=== PATIENT | male | born 1950 | race Caucasian/White ===

== ENCOUNTER 2016-09-09 21:56 | Emergency (ER) | payer MEDICARE ==
[~2016-09-09 21:56] MED LIST: ASA325 MG PO; BYDUREON P2 MG/0.65 SQ; CALCIUM PO; COREG25 MG PO; FOSINOPRIL SODI20 MG PO; GLUCOPHAGE500 MG PO; HUMALOG100 UNIT/1 SQ; HYDROCHLOROTHIA25 MG PO; HYDROCODON-ACE1 EAC4 PO; K-TAB ER20 MEQ PO; LANTUS100 UNITS/ SQ; LASIX DPS40 MG PO; MAGNESIUM OXID400 MG PO; NAPROSYN DPS500 MG PO; NORVASC5 MG PO; OMEPRAZOLE20 M1 PO; PERCOCET 7.5-31 EACH PO; SPIRONOLACTONE25 MG PO; SYMBICORT 16010.2 GM IH; TRIAMCINOLONE A15 GM TP; VENTOLIN IH; VITAMIN D-32000 UNI1 PO; VYTORIN 10-801 EACH PO
--- NOTE | 2016-09-10 13:07 | ER ---
ADMIT: 09/09/2016 RM/LOC: ER [facility] MR#: [id number] [id number] [place], [place] [address] BETTY LEVY [address] [place] [phone] Emergency Room Report SEX: M AGE: 66 : 1950 DATE: 09/09/2016 HISTORY OF PRESENT ILLNESS: Patient is a 66-year-old male, came here with chief complaint of right elbow and left knee pain. The patient states about 45 minutes ago, he slipped while coming down the stairs and he rolled down 8 stairs, no LOC, no head trauma, ambulated after the accident. The patient states he has pain, which is sharp and moderate in the right elbow and left knee and increases with range of motion, but he is able to do range of motion on both joints. The patient denies any drowsiness, nausea, vomiting, and also alcohol or drug use. The patient denies any chest pain, shortness of breath, abdominal pain or any numbness, tingling, or weakness or problem with the speech too. PHYSICAL EXAMINATION: VITAL SIGNS: Normal. The patient is in mild to moderate pain while range of motion of the right elbow and left knee. GENERAL: The patient is sitting in the bed and answering the questions calmly. HEENT: There is no signs of trauma in the head and neck. No spine midline tenderness or step-offs. Pupils are 3 mm, reactive to light bilaterally, no hemotympanum, no bruises in the face or behind the ears. There is no bruises or no fracture of the teeth or no laceration of the lips. CHEST: Clear bilaterally normal. HEART: Normal heart sounds. EXTREMITIES: There is abrasion on the right elbow, but the patient can do complete range of motion actively and passively. There is mild abrasion on the left knee too and there is no ballottement and the patient could do normal range of motion and the ligamentous tests are grossly normal. IMAGING: X-ray of the left knee was negative for fracture, but just suggestive of DJD. X-ray of the right elbow had severe DJD and questionable fracture of the distal humerus versus artifact. PLAN: The patient was put on a splint and sling for comfort and was sent home. Pain control and advised to follow up with the Orthopedic Surgery on Sunday for questionable fracture of distal humerus. The patient had normal peripheral pulses, capillary filling, and neurovascular exam was normal after putting the splint. Cande Adair MD/ sudhir JOB #: [id number] CC: Clay Oliveira MD, Attending Physician Billy Villegas MD, Family Physician
[2016-11-22] MEDS ORDERED: NORVASC DPS10 MG PO (18:05)
[2016-11-22] MEDS ORDERED: ZOCOR80 MG PO (18:05)
[2016-11-22] MEDS ORDERED: LASIX DPS40 MG PO (18:05)
[2016-11-22] MEDS ORDERED: NORCO 5-325 TA1 EACH PO (18:06)
[2016-11-22] MEDS ORDERED: PERCOCET 7.5 DP1 TAB PO (18:06)
[2016-11-22] MEDS ORDERED: COMBIVENT RESPIM4 G1 IH (18:06)
[2016-11-22] MEDS ORDERED: CARVEDILOL25 MG PO (18:06)
[2016-11-22] MEDS ORDERED: CALTRATE-600 D600 MG PO (18:07)
[2016-11-22] MEDS ORDERED: ZETIA10 MG PO (18:07)
[2016-11-22] MEDS ORDERED: TRESIBA FL100 UNIT/1 SQ (18:07)
[2016-11-22] MEDS ORDERED: ASA325 MG PO (18:07)
[2016-11-22] MEDS ORDERED: PEPCID AC10 MG PO (18:08)
[2016-11-22] MEDS ORDERED: NOVOLOG100 UNIT/2 SQ (18:09)
[2016-11-22] MEDS ORDERED: TYLENOL DPS325 MG PO (18:10)
[2016-11-22] MEDS ORDERED: NITROSTAT0.4 MG SL (18:10)
[2016-11-22] MEDS ORDERED: GLUTOSE 1537.5 GM PO (18:10)
[2016-11-22] MEDS ORDERED: ROCALTROL DP0.25 MCG PO (18:10)
== END 2016-09-10 00:05 | disposition home or self-care (01) ==
LOC: ER 21:56
PROC: 2W38X1Z Immobilization of Right Upper Extremity using Splint (ICD-10-PCS; principal; 2016-09-09)
DX: S50.01XA Contusion of right elbow, initial encounter (principal); S80.02XA Contusion of left knee, initial encounter; W10.9XXA Fall (on) (from) unspecified stairs and steps, initial encounter

== ENCOUNTER 2016-11-17 13:59 | Inpatient (IN) | payer MEDICARE ==
[~2016-11-17] VITALS: Ht 170.2 cm; Wt 102.1 kg
--- NOTE | ~2016-11-17 | ECH ---
Transthoracic Echocardiography Report (TTE) Demographics Patient Name BETTY LEVY Date of Study 11/17/2016 Patient Number [id number] Visit Number [id number] Date of 1950 Room Number 430 Accession Number [id number] Gender Male Age 66 year(s) Referring Nelly Camp Insulation Helper Yusra Ortega MD [facility] Physician Interpreting Hoang Darnell MD [facility] Physician Supervising Ordering Physician Nelly Paniagua MD/CARLOS OWEN Nurse Stress Sales Superintendent Conclusions Summary Technically adequate exam. The estimated left ventricular ejection fraction is 60%. Diastolic assessment reveals Grade I diastolic dysfunction. No significant valvular abnormalities. Procedure Type of Study TTE procedure Procedure Date Date: 11/17/2016 Start: 04:00 PM Technical Quality: Adequate visualization Indications:Chest pain, Shortness of breath, Diabetes, Hypertension and Coronary artery disease. Appropriate Use Criteria: 9 Height: 67 inches Weight: 230 pounds BSA: 2.15 m Rhythm: NSR HR: 69 bpm BP: 153/71 mmHg M-Mode/2D Measurements LV Diastolic Dimension: 5.75 cm LV Systolic Dimension: 4.49 cm LV Septum Diastolic: 0.87 cm LV PW Diastolic: 0.86 cm AO Root Dimension: 2.42 cm Cardiac Output: 5.44 l/min LA Dimension: 3.52 cm Cardiac Index: 2.53 l/min*m RV Diastolic Dimension: 2.83 cm LA volume index: 25 ml/m LVOT: 2 cm LVOT VTI: 25.09 cm RV Base: 3.6 cm LV Stroke volume: 78.78 ml RV Mid: 2.2 cm LV Stroke volume index: 36.64 ml/m TAPSE: 2.8 cm TDI-S': 11 cm/s Doppler Measurements AV Peak Velocity: 1.2 m/s MV Peak E-Wave: 0.77 m/s AV Peak Gradient: 5.76 mmHg MV Peak A-Wave: 0.86 m/s AV Mean Gradient: 2.67 mmHg MV E/A Ratio: 0.9 LVOT Peak Velocity: 1.01 m/s MV P1/2t: 60.9 msec AV Area (Continuity):3.14 cm MV Deceleration Time: 215.5 msec MV Area (PHT): 3.61 cm PV Peak Velocity: 0.91 m/s E' Septal Velocity: 0.07 m/s PV Peak Gradient: 3.32 mmHg E' Lateral Velocity: 0.07 m/s A' Septal Velocity: 0.08 m/s A' Lateral Velocity: 0.1 m/s RA Area: 13.92 cm Findings Left Ventricle Normal left ventricle size and function. Diastolic assessment reveals Grade I diastolic dysfunction. Right Ventricle Normal right ventricle structure and function. Left Atrium Normal left atrial size. Right Atrium Normal right atrial size. Mitral Valve Normal mitral valve structure and function. Trivial mitral regurgitation by color Doppler. Aortic Valve Normal aortic valve structure and function. Tricuspid Valve Normal tricuspid valve structure and function. Trivial tricuspid regurgitation by color Doppler. Insufficient jet to calculate pulmonary pressures. Pulmonic Valve Normal pulmonic valve structure and function. Pericardial Effusion No evidence of pericardial effusion. Miscellaneous Visualized portions of the aortic root and ascending aorta appear normal in size. Pleural Effusion No evidence of pleural effusion. Signature
--- NOTE | 2016-11-20 07:52 | HP ---
ADMIT: 11/17/2016 RM/LOC: 430 [facility] MR#: [id number] [address] [facility] [address] [place], [place] [address] BETTY LEVY [address] [place] [phone] History and Physical SEX: M AGE: 66 : 1950 DATE OF SERVICE: CHIEF COMPLAINT: Chest pain, shortness of breath. HISTORY OF PRESENT ILLNESS: A 66-year-old male, who states for the last 3 to 4 days, he has been having some discomfort in the left side of his chest. He points to just left of the external border at the 5th-6th rib level. He says it is kind of a pinching-type pain. He has had a history of coronary artery disease and said it feels similar to this. He was given nitroglycerin paste, aspirin, oxygen in the ER. He still has some discomfort, but it is improved. He says this has been associated with some shortness of breath but no nausea, no diaphoresis. He is fairly sedentary. This pain does not seem to be related to exertion. He has been evaluated in the emergency room by Dr. Manjinder Villegas, certified driver examiner, and he feels there is some component of congestive heart failure. So, he is being admitted at this time to diurese him and trend his enzymes. He is usually cared for in our office by Dr. Billy Villegas. ALLERGIES: NONE LISTED. MEDICATIONS: Currently takes: 1. Aldactone 25 mg daily. 2. Amlodipine 10 mg daily. 3. Metformin 500 mg two tablets b.i.d. 4. Simvastatin 80 mg daily. 5. Potassium 20 mEq daily. 6. Lasix 40 mg b.i.d. 7. Hydrochlorothiazide 25 mg daily. 8. Combivent inhaler 20/100, two puffs q.4 hours p.r.n. 9. Omeprazole 20 mg daily. 10.Lortab 5/325, one to two every 4 hours p.r.n. for pain. 11.Oxycodone 7.5, one every 4 hours p.r.n. for pain. 12.Coreg 25 mg b.i.d. 13.Aspirin 325 mg daily. 14.Calcium 600 mg daily. 15.Zetia 10 mg daily. 16.Mag oxide 400 mg daily. 17.Tresiba insulin 160 units subcutaneous daily. PAST MEDICAL HISTORY: Hospitalized in the past for chest pain, most recently in 2014. He has had negative workups in the past, although remote heart catheterization apparently in 2009 did show some nonobstructive coronary artery disease. He has history of chronic pain in back and knees. He is on chronic narcotics. He has chronic obstructive pulmonary disease. He quit smoking in 2003. SOCIAL HISTORY: He is disabled, not able to work due to his knees and back. Lives with his . He quit smoking 5-6 years ago. Denies any drug or alcohol use. He is fairly sedentary. His has multiple medical problems. ADMIT: 11/17/2016 RM/LOC: 430 [facility] MR#: [id number] [address] [place], [place] [address] BETTY LEVY [address] [phone] History and Physical SEX: M AGE: 66 : 1950 He is a caregiver for her. FAMILY HISTORY: Positive for father of old age and mother had some other cancer, type unknown. REVIEW OF SYSTEMS: Negative other than noted above. PHYSICAL EXAMINATION: GENERAL: A 66-year-old male, appears older than his stated age. VITAL SIGNS: Stable. BP 138/78, respiratory rate 22, temp 98.4, O2 saturation 95% on oxygen. HEENT: Eyes PERRLA, EOMS intact. TMs not seen. Throat is moist, not inflamed. NECK: Supple. LUNGS: Clear. RESPIRATIONS: Not labored. Breath sounds at the bases are diminished. Occasional rale heard. HEART: Regular rate. No murmur. ABDOMEN: Obese. No organomegaly or tenderness. /RECTAL: Deferred. EXTREMITIES: +1 to +2 edema in the lower extremities. DIAGNOSTIC IMPRESSION: 1. Atypical chest pain, rule out acute coronary syndrome. 2. Congestive heart failure. 3. Diabetes mellitus type 2. 4. Morbid obesity. 5. Hyperlipidemia. 6. Osteoarthritis. 7. Hypertension. 8. Gastroesophageal reflux disease. 9. Chronic back pain. PLAN: We will get serial EKG enzymes. He is started on IV Lasix per ERWIN for diuresis. We will place him on sliding scale insulin and monitor his sugars. Richard Soliman MD/ sudhir JOB #: [id number] CC: Billy Villegas MD, Attending Physician Billy Villegas MD, Family Physician
[2016-11-22] MEDS ORDERED: ZOCOR80 MG PO (18:05)
[2016-11-22] MEDS ORDERED: LASIX DPS40 MG PO (18:05)
[2016-11-22] MEDS ORDERED: NORVASC DPS10 MG PO (18:05)
[2016-11-22] MEDS ORDERED: NORCO 5-325 TA1 EACH PO (18:06)
[2016-11-22] MEDS ORDERED: PERCOCET 7.5 DP1 TAB PO (18:06)
[2016-11-22] MEDS ORDERED: COMBIVENT RESPIM4 G1 IH (18:06)
[2016-11-22] MEDS ORDERED: CARVEDILOL25 MG PO (18:06)
[2016-11-22] MEDS ORDERED: ZETIA10 MG PO (18:07)
[2016-11-22] MEDS ORDERED: CALTRATE-600 D600 MG PO (18:07)
[2016-11-22] MEDS ORDERED: TRESIBA FL100 UNIT/1 SQ (18:07)
[2016-11-22] MEDS ORDERED: ASA325 MG PO (18:07)
[2016-11-22] MEDS ORDERED: PEPCID AC10 MG PO (18:08)
[2016-11-22] MEDS ORDERED: NOVOLOG100 UNIT/2 SQ (18:09)
[2016-11-22] MEDS ORDERED: NITROSTAT0.4 MG SL (18:10)
[2016-11-22] MEDS ORDERED: GLUTOSE 1537.5 GM PO (18:10)
[2016-11-22] MEDS ORDERED: ROCALTROL DP0.25 MCG PO (18:10)
[2016-11-22] MEDS ORDERED: TYLENOL DPS325 MG PO (18:10)
--- NOTE | 2016-11-23 08:44 | ER ---
ADMIT: 11/17/2016 RM/LOC: 430 [facility] MR#: [id number] [address] [facility] [address] [place], [place] [address] BETTY LEVY [address] [place] [phone] Emergency Room Report SEX: M AGE: 66 : 1950 DATE: 11/17/2016 TIME: 1359 hours. Please refer to my T-sheet for complete H and P. Briefly, a 66-year-old who comes in with some chest pain on and off for a week. He has had orthopnea, also shortness of breath on exertion. Just has not been feeling very well. He has known coronary artery disease, diabetes. It sounds like he does not watch his sugars very careful. PHYSICAL EXAMINATION: VITAL SIGNS: His blood pressure 153/71, pulse 70, respirations 18, temp 97.7, and sat 95%. GENERAL: He is in no acute distress. HEENT: Grossly normal. LUNGS: Slightly coarse with a little bit of crackles in the bases, otherwise essentially unremarkable. ABDOMEN: Soft. EXTREMITIES: 2+ edema. NEUROLOGIC: Alert and oriented, nonfocal. EMERGENCY DEPARTMENT COURSE: A cardiac routine chest x-ray showed no hyperacute changes, revealed some congestive mild heart failure. EKG was sinus rhythm, rate 69, no changes. CBC was normal except hemoglobin 11.9. Chemistries are normal except potassium 5.7, BUN 41, and creatinine 3.3. CK 365, CK-MB 5. Troponin negative. BNP 632. We did give him aspirin, inch of nitroglycerin paste, and 30 mL of Maalox. He was improved. Had no pain while here. I talked to Dr. Manjinder Villegas of [facility], he evaluated directly. In the ER, I talked to Dr. Soliman. They will admit to the hospital. ASSESSMENT: 1. Chest pain, enzymes negative, at this time pain free. 2. Acute congestive heart failure, with his BNP elevated at 632. 3. Acute renal insufficiency. He normally runs around two or little bit higher, but he is 3.3 today. 4. Mild hyperkalemia. PLAN: Give Lasix when he arrives on the floor. Dr. Villegas is already seeing. Dr. Soliman will admit. Domo Collins MD/ sudhir JOB #: [id number] CC: Billy Villegas MD, Attending Physician Billy Villegas MD, Family Physician
--- NOTE | 2016-11-26 10:09 | DS ---
ADMIT: 11/20/2016 RM/LOC: 430 [facility] MR#: [id number] [address] [facility] [address] [place], [place] [address] BETTY LEVY [address] [place] [phone] General Discharge Summary SEX: M AGE: 66 : 1950 ADMISSION DATE: 11/20/2016 DISCHARGE DATE: 11/21/2016 FINAL DIAGNOSES: 1. New onset acute congestive heart failure. 2. Atypical chest pain. 3. Known coronary artery disease with chronically occluded circumflex. 4. Type 2 insulin-dependent diabetes - noncompliant with therapy. 5. Chronic obesity. 6. Hyperlipidemia. 7. Hypertension. 8. Mild acute kidney injury - resolving. 9. Chronic pain syndrome with low back and knee pain. 10.Chronic obstructive pulmonary disease. 11.Chronic narcotic use. 12.Acute diastolic congestive failure. BRIEF HISTORY: This 66-year-old male presented with a 3- to 4-day history of some discomfort in the left side of his chest. He pointed to just left of the external border at the 6th ribs and said it was a pinching-type pain. He has a history of coronary artery disease. He was given nitroglycerin paste, aspirin, and oxygen in the ER. He still had some discomfort but it improved. This had been associated with some shortness of breath, but no nausea or diaphoresis. It was felt best to admit him for further evaluation and treatment. SIGNIFICANT LAB AND X-RAY DATA: On 11/17, CBC showed a hemoglobin of 11.9 with normal indices, platelets of 343,000, white count of 9200. Repeat CBC of 11/18 showed no significant change. On 11/17, BMP showed a potassium of 5.7 mmol/L, creatinine of 3.3 mg/dL, calcium 8.0 mg/dL. Repeat CMP of 11/17 at 1750 hours showed a creatinine of 3.2 mg/dL, calcium 7.8 mg/dL, and albumin of 2.6 mg/dL, and was otherwise within normal limits. Cardiac enzymes were evaluated on admission and were within normal limits. Serial chemistries were followed. By 11/21, his BMP showed normal electrolytes, a glucose of 248 mg/dL, creatinine of 3.8 mg/dL, and a calcium of 7.3 mg/dL with a calculated GFR of 16. Serial bedside blood sugars were followed. On 11/17, TSH was 3.390 UIU/L (normal 0.400-3.800), with a free T4 of 1.14 mg/dL (normal 0.70-1.40). On 11/17, glycosylated hemoglobin was 8.1%. ADMIT: 11/20/2016 RM/LOC: 430 [facility] MR#: [id number] [address] [address] BETTY LEVY [address] [place] [address] [phone] General Discharge Summary SEX: M AGE: 66 : 1950 Admitting urinalysis showed 2+ protein, 30 mg/dL glucose, and was otherwise within normal limits. Stool study of 11/17 for an enteric pathogen panel was negative. Chest x-ray on admission was read as "normal." Ultrasound of the kidneys on 11/18 showed "no acute renal abnormalities identified sonographically. No hydronephrosis identified on either side." Echocardiogram of 11/17 showed an estimated left ventricular ejection fraction of 60% with grade 1 diastolic dysfunction and no significant valvular abnormalities. EKG on admission showed sinus rhythm with borderline first- degree AV block, possible old septal infarct. Compared to 06/01/2016, no significant change. HOSPITAL COURSE: The patient was admitted through the ER, chest pain point of entry protocol. He was seen by Cardiology and started on Lasix 80 mg IV x1. Strict I's and O's, dietary consult for weight loss and diabetes. He was placed on telemetry with routine telemetry orders. His other home medications were continued. He was placed on subcutaneous NovoLog per sliding scale with q.i.d. Accu-Cheks. By 11/18, he had no further chest pain and his enzymes were negative. His potassium and Aldactone and hydrochlorothiazide were held. Nephrology consult was requested and they were kind enough to see him. Again, Klor-Con was held, as was his metformin. On 11/19, things were relatively stable. Adjustments were made in his Lasix and insulin doses. By 11/21, he was "back to normal." He was tolerating his medications well. His Accu-Cheks were in the 150-205 range. At that point, it was felt safe to dismiss him to home. He will be allowed ADA diet as tolerated and activity as tolerated. Arrangements will be made for him to be seen in my office in 10-14 days, at which point, a CBC and BMP will be done. Arrangements will be made for followup with [facility] and nephrology. He was seen by diabetes educators prior to dismissal. On dismissal, his medications included: 1. Aspirin 325 mg daily. 2. Caltrate 600 mg one daily. 3. Coreg 25 mg b.i.d. 4. Lasix 40 mg b.i.d. 5. Norvasc 10 mg daily. 6. Pepcid 10 mg b.i.d. 7. Zetia 10 mg at bedtime. 8. Zocor 80 mg at bedtime. 9. Tresiba 60 units daily. 10.Sliding scale low-dose NovoLog. ADMIT: 11/20/2016 RM/LOC: 430 [facility] MR#: [id number] [address] [facility] [address] [place], [place] [address] BETTY LEVY [address] [place] [phone] General Discharge Summary SEX: M AGE: 66 : 1950 He will have p.r.n. orders for: 1. Colace. 2. Glutose. 3. Hydrocodone. 4. Maalox. 5. Percocet. 6. Tylenol. 7. Combivent. 8. Nitrostat. He was left off his spironolactone, metformin, and amlodipine. CONDITION ON DISCHARGE: Stable on the above treatment. FINAL DISPOSITION: As noted. PROGNOSIS: Guarded. Billy Villegas MD/ sudhir JOB #: [id number] CC: Billy Villegas MD, Attending Physician Billy Villegas MD, Family Physician
--- NOTE | 2016-11-27 08:10 | CO ---
ADMIT: 11/17/2016 RM/LOC: 430 [facility] MR#: [id number] [address] [facility] [address] [place], [place] [address] BETTY LEVY [address] [place] [phone] Consultation SEX: M AGE: 66 : 1950 DATE OF CONSULTATION: 11/18/2016 ATTENDING PHYSICIAN: Billy Villegas MD CONSULTING PHYSICIAN: Librado Dyson DO REASON FOR HOSPITALIZATION: Atypical chest pain. HISTORY OF PRESENT ILLNESS: This is a 66-year-old male patient, who presented and Dr. Soliman has admitted him for acute congestive heart failure and atypical chest pain. He was subsequently noted to have an elevation in his creatinine above baseline as well as potassium. His current potassium 5.9, creatinine 3.5, however, in 2014, he was running a creatinine in the upper 1 range consistent with CKD. He does have a medical history of diabetes, hyperlipidemia, COPD, CHF, obesity, known underlying coronary artery disease. MEDICATIONS: 1. Spironolactone. 2. Metformin. 3. Amlodipine. 4. Simvastatin. 5. Potassium. 6. Hydrochlorothiazide. 7. Combivent. 8. Omeprazole. 9. Hydrocodone. 10.Carvedilol. 11.Aspirin. 12.Calcium. 13.Zetia. 14.Magnesium. 15.Tarceva. For specifics of dosing, please refer to his admission orders. Dr. Soliman has arranged to hold all of his diuretics and metformin at this point. SOCIAL HISTORY: Disabled. Lives independently. He has a previous history of smoking, not currently smoking or using alcohol. FAMILY HISTORY: Father of old age. Mother of cancer. REVIEW OF SYSTEMS: He states that about a month ago he had quite a bit of edema, but at that point, he was given some pills and his edema has resolved. He does not know the details of these medications nor their function in his regimen. He is not currently having any shortness of breath, cough, sputum production. He did have some atypical type chest discomfort at presentation. No nausea, vomiting, diarrhea, or bleeding. PHYSICAL EXAMINATION: GENERAL: He is pleasant, alert, obese and in no apparent distress. ADMIT: 11/17/2016 RM/LOC: 430 [facility] MR#: [id number] [address] [place], [place] [address] BETTY LEVY [address] [place] [address] [phone] Consultation SEX: M AGE: 66 : 1950 VITAL SIGNS: His blood pressure is 174/69, his temperature is 98.4, his current weight is 94.7 kg but his admission weight yesterday was reported at 104 kg, suspect measurement error. HEART: Regular. LUNGS: Clear. He has no peripheral edema. No JVD. ABDOMEN: Round and soft. LABORATORY DATA: Labs are reviewed. His creatinine has been trending up and is now at 3.5, his potassium is 5.9. Renal ultrasound is pending. IMPRESSION: Acute kidney injury superimposed upon chronic kidney disease. PLAN: Dr. Soliman has already made sound changes in his regimen including holding hydrochlorothiazide, Lasix, Aldactone, etc. His metformin is also on hold. We will await his ultrasound and Dr. Abdullahi will see and review him on Sunday when he returns. Librado Dyson DO/ modl JOB #: [id number] CC: Billy Villegas MD, Attending Physician Billy Villegas MD, Family Physician
--- NOTE | 2016-12-07 10:56 | CO ---
ADMIT: 11/17/2016 RM/LOC: [address] [facility] MR#: [id number] [address] [facility] [address] [place], [place] [address] BRANDO LEVY [address] [place] [phone] Consultation SEX: M AGE: 66 : 1950 DATE OF CONSULTATION: 11/17/2016 ATTENDING PHYSICIAN: Billy Villegas MD CONSULTING PHYSICIAN: Manjinder Villegas MD PRIMARY CARE PHYSICIAN: Billy Villegas MD REFERRING PHYSICIAN: Domo Collins MD and Richard Soliman MD REASON FOR CONSULT: Chest pain and shortness of breath. HISTORY OF PRESENT ILLNESS: Brando is a 66-year-old gentleman, who is known to us. He underwent a heart catheterization exactly 6 years ago on November 17, 2010. He had 100% distal circumflex stenosis, but mild nonobstructive disease. Elsewhere, he has been medically managed since that point. His last stress test was March of 2015, when he was admitted with chest pain. It showed a fixed defect in the entire inferolateral wall consistent with his known circumflex stenosis. For the past several weeks, Brando has been having increasing shortness of breath and dyspnea with exertion. He is to the point, where he has to elevate the head of his bed. He gets very short of breath just bending over and tying shoes. Today, walking into his [employer] track meet, he was short of breath and had to take a rest. Over the past week, his symptoms have been associated with some chest discomfort, described as a "hot burning" substernal. There is no real radiation. He describes it is mild in intensity. No significant associated symptoms other than shortness of breath. His shortness of breath is not always associated with his chest discomfort and his chest discomfort is not always exertional. His initial cardiac enzymes are negative. His EKG shows some slurring mild ST elevation, but no evidence of acute injury pattern or ischemic EKG changes. He does admit that he has been noncompliant with his diet. He eats high sodium. He has been taking his medications. He says he takes whatever his gives him. PAST MEDICAL HISTORY: ALLERGIES: NO KNOWN MEDICAL ALLERGIES. HOME MEDICATIONS: Include: 1. Percocet 7.5/325 daily. 2. Hydrocodone as needed. 3. Triamcinolone cream. 4. Metformin 500. 5. Promethazine. 6. Advair. 7. Diskus. ADMIT: 11/17/2016 RM/LOC: [address] [facility] MR#: [id number] [address] [address] BRANDO LEVY [address] [place] [phone] Consultation SEX: M AGE: 66 : 1950 8. Combivent inhaler. 9. Omeprazole 20 daily. 10.Narcan nasal. 11.Potassium chloride 20 mEq daily. 12.Spironolactone 25 daily. 13.Coreg 25 b.i.d. 14.Mag oxide 400. 15.Bydureon 2 mg pen injector. 16.Simvastatin 80 mg daily. 17.Zetia 10 daily. 18.Amlodipine 10 daily. 19.Hydrochlorothiazide 25 daily. 20.Triamcinolone cream. 21.Lasix 40 daily. 22.Vitamin D3 of 2000 units daily. 23.Humalog insulin. 24.Fosinopril 20 daily. 25.Calcium daily. 26.Aspirin 325 daily. ILLNESSES: Include known coronary artery disease with chronically occluded circumflex, insulin-dependent diabetes, hypertension, hyperlipidemia, and chronic back pain secondary to a traumatic injury. He says he has had no prior surgeries. FAMILY HISTORY: His father at age 97 of unknown causes. His mother at age 65 from cancer. No family history of premature coronary artery disease. SOCIAL HISTORY: He is originally from [place], but he has lived all his adult life in [place]. He is retired from the [employer] business. He is , with five children. He quit alcohol many years ago and quit smoking cigarettes at least 10 years ago. REVIEW OF SYSTEMS: A full 10-point review of systems was reviewed with the patient noncontributory other than that mentioned in the HPI. PHYSICAL EXAMINATION: VITAL SIGNS: Blood pressure is 153/77, pulse is 70, respirations 18, he is afebrile, and O2 sats are 95% on room air. SKIN: [place], warm and dry. EYES: Sclerae are injected. No xanthelasmas. ENT: There is JVD with a positive V-wave up to the angle of the jaw. The neck is obese. No carotid bruits noted. HEART: Distant. Regular rate and rhythm. Normal S1, S2. No murmurs, rubs or gallops. No lifts heaves and I cannot feel the point of maximum impulse. CHEST: Mildly diminished in the bases. Respirations are even and unlabored. Lungs are clear to auscultation. ABDOMEN: Obese, there is a small ventral wall hernia in the left lower ADMIT: 11/17/2016 RM/LOC: [address] [facility] MR#: [id number] [facility] [address] [address] BRANDO LEVY [address] [place] [address] [phone] Consultation SEX: M AGE: 66 : 1950 quadrant and several bruises noted. There is a positive hepatic jugular reflux. EXTREMITIES: There is mild edema up to his posterior knees bilaterally with hair loss in his lower extremities. PSYCH: Alert and oriented. Mood and affect are appropriate. MUSCULOSKELETAL: Gait is normal. LABORATORY DATA: White count is 9.2, hemoglobin 11.9, and platelet count 343. Sodium 142, potassium 3.5, glucose 146, and creatinine is 0.7. AST and ALT are normal. I believe his initial cardiac enzymes were reported as normal. I have yet to read and review them personally. IMPRESSION: 1. New onset congestive heart failure. 2. Atypical chest pain. 3. Known coronary artery disease with chronically occluded circumflex. 4. Insulin-dependent diabetes. 5. Obesity. 6. Hyperlipidemia. 7. Hypertension. RECOMMENDATIONS: After my conversation with him, I am less impressed with a possible recurrent angina and acute coronary syndrome as I am with heart failure. He has clear orthopnea, shortness of breath with exertion, and evidence on clinical exam of volume expansion. I agree with admission for IV diuresis. He needs education regarding a low-sodium diet. I would like to do an echo to evaluate his LV motion. We will continue the rule out protocol. After successful diuresis, we will decide ultimately about his need for further ischemic evaluation. detention, I think he would be a risk for significant sleep apnea. We may consider a sleep study in the future. Manjinder Villegas MD/ sudhir JOB #: [id number] CC: Billy Villegas MD, Attending Physician Billy Villegas MD, Family Physician
== END 2016-11-21 14:12 | disposition home or self-care (01) | DRG 291 ==
LOC: ER 13:59 → 4PCU 15:30
PROVIDERS: ADMIT Family Medicine
DX: I13.0 Hypertensive heart and chronic kidney disease with heart failure and stage 1 through stage 4 chronic kidney disease, or unspecified chronic kidney disease (principal); I50.31 Acute diastolic (congestive) heart failure; N17.9 Acute kidney failure, unspecified; E11.22 Type 2 diabetes mellitus with diabetic chronic kidney disease; E11.65 Type 2 diabetes mellitus with hyperglycemia; J44.9 Chronic obstructive pulmonary disease, unspecified; N18.4 Chronic kidney disease, stage 4 (severe); R07.89 Other chest pain; E87.5 Hyperkalemia; E66.01 Morbid (severe) obesity due to excess calories; G89.4 Chronic pain syndrome; I25.10 Atherosclerotic heart disease of native coronary artery without angina pectoris; G89.29 Other chronic pain; E66.9 Obesity, unspecified; E78.5 Hyperlipidemia, unspecified; M19.90 Unspecified osteoarthritis, unspecified site; K21.9 Gastro-esophageal reflux disease without esophagitis; M54.9 Dorsalgia, unspecified; Z91.11 Patient's noncompliance with dietary regimen; Z79.84 Long term (current) use of oral hypoglycemic drugs; Z87.891 Personal history of nicotine dependence; Z79.4 Long term (current) use of insulin

== ENCOUNTER 2016-12-11 19:34 | Emergency (ER) | payer MEDICARE ==
[~2016-12-11 19:34] MED LIST changes: +CALTRATE-600 D600 MG PO; +CARVEDILOL25 MG PO; +COMBIVENT RESPIM4 G1 IH; +GLUTOSE 1537.5 GM PO; +NITROSTAT0.4 MG SL; +NORCO 5-325 TA1 EACH PO; +NORVASC DPS10 MG PO; +NOVOLOG100 UNIT/2 SQ; +PEPCID AC10 MG PO; +PERCOCET 7.5 DP1 TAB PO; +ROCALTROL DP0.25 MCG PO; +TRESIBA FL100 UNIT/1 SQ; +TYLENOL DPS325 MG PO; +ZETIA10 MG PO; +ZOCOR80 MG PO
--- NOTE | 2016-12-12 05:24 | ER ---
ADMIT: 12/11/2016 RM/LOC: ER [facility] MR#: [id number] [address] [facility] [id number] [place], [place] [address] AYAKA LEVY [address] [place] [phone] Emergency Room Report SEX: M AGE: 66 : 1950 DATE: 12/11/2016 The patient is a 66-year-old male with chronic low back pain, tweaked it walking with his grandson on uneven gravel tonight. Previous epidural steroid injections, but none for over a year. Exam remarkable for nontoxic, afebrile, obese male with acute low back pain radiating to left posterior thigh. No weakness or decreased reflexes, bowel or bladder dysfunction. The patient received Toradol in the emergency department with improvement, prednisone 40 mg load and 40 mg 12-day taper starting tomorrow, hydrocodone 5/325 as needed #20 plus 6 from Pyxis. Follow up Dr. Villegas for referral to pain clinic. Clay Oliveira MD/ sudhir JOB #: [id number] CC: Clay Oliveira MD, Attending Physician Billy Villegas MD
== END 2016-12-11 20:48 | disposition home or self-care (01) ==
LOC: ER 19:34
DX: M54.16 Radiculopathy, lumbar region (principal); M54.5 Low back pain; I10 Essential (primary) hypertension; E11.9 Type 2 diabetes mellitus without complications; J44.9 Chronic obstructive pulmonary disease, unspecified; J45.909 Unspecified asthma, uncomplicated; Z79.4 Long term (current) use of insulin; Z79.899 Other long term (current) drug therapy